=== PATIENT | female | born 1995 | race Caucasian/White ===

== ENCOUNTER → 2019-01-21 | Outpatient (CLI) | payer MEDICAID ==
--- NOTE | 2019-01-21 15:00 | RADIOLOGY REPORT (SQ) ---
EXAM DESCRIPTION: U/S OB 14+ TRNABD 1GES W/O DOP COMPLETED DATE/TIME: 01/21/2019 2:44 pm REASON FOR STUDY: Z34.02 ENCNTR FOR SUPRVSN OF NORMAL FIRST PREG, SECOND TRIMESTER Z34.02 ENCNTR FO R SUPRVSN OF NORMAL FIRST PREG, SECOND TRIME COMPARISON: None. TECHNIQUE: Static and Dynamic grayscale imaging performed of gravid uterus using transabdominal appr oach. Additional selected color Doppler and spectral images recorded. All stored on PACS. LIMITATIONS: None. FINDINGS: FETUSES SEEN:1 EGA: 18 weeks 0 days Calculated using BPD,FL,HC,AC documented on images. No discrepancy with clinica l dates. KENNA: 06/24/2019 EFW: 221 grams PERCENTILE: 24th LV P: 3.2 cm. PLACENTA: Posterior grade 1 PRESENTATION: Variable ANATOMY: HEART RATE: 168 beats per minute. FOUR CHAMBER HEART: Visualized. THREE VESSEL CORD: Yes. CORD INSERTION: Visualized. KIDNEYS AND BLADDER: Visualized. Appear normal. STOMACH: Visualized. Appears normal. SPINE: Normal as visualized. BRAIN AND LATERAL VENTRICLES: Visualized. Appear normal. OTHER: No other significant finding. MATERNAL ADNEXA: Maternal ovaries not visualized. CERVICAL LENGTH: 5.4 cm. Closed. OTHER: No other significant finding. IMPRESSION: LIVING INTRAUTERINE . ESTIMATED GESTATIONAL AGE 18 weeks 0 days. NO VISUALIZED ANOMALIES. Trimester of : Second trimester - 13 weeks 1 day to 27 weeks 6 days. TECHNICAL DOCUMENTATION: JOB ID: [id number] [employer]- All Rights Reserved Reading location - IP/workstation name: [email or web address]
== END ==
LOC: RAD 13:37
PROVIDERS: ATTEND Midwife
DX: Z34.02 Encounter for supervision of normal first pregnancy, second trimester (principal)
CPT/HCPCS: 76805

== ENCOUNTER 2019-02-11 15:49 | Emergency (ER) | payer MEDICAID ==
--- NOTE | 2019-02-11 16:10 | ER Document Report ---
ED Medical Screen (RME) - General Time Seen by Provider: 02/11/19 15:55 Primary Care Provider: DESHAUN ALEJANDRO CNM [Primary Care Provider] - Follow up as needed Notes: 23-year-old G1, P0 21-week female with history of Dennis sarcoma and intermittent hypertension presents the emergency department with left-sided chest pain and abdominal pain. Patient states that the chest pain is dull and constant but worse when she takes a deep breath. No positive family history. Does not radiate. No associated nausea, vomiting, diaphoresis, dyspnea on exertion. Patient's chief concern is the abdominal pain that is in the left upper quadrant and in the right lower quadrant. She states that it is constant and unlike any obvious cramping or normal aches and pains of . Call was placed upstairs to OB and they requested that we clear her chest pain prior to them assessing her for abdominal pain. Exam: Well-appearing in no acute distress, lungs are clear to auscultation all gómez, regular cardiac rate and rhythm with no murmurs, unable to reproduce theresa st pain with anterior palpation but patient can reproduce it when taking a deep breath, abdominal exam deferred I have greeted and performed a rapid initial assessment of this patient. A comprehensive ED assessment and evaluation of the patient, analysis of test results and completion of medical decision making process will be conducted by an additional ED providers. TRAVEL OUTSIDE OF THE [place] IN LAST 30 DAYS: No Physical Exam - Vital signs Vitals: Temp Pulse Resp BP Pulse Ox 98.2 F 88 16 111/71 99 02/11/19 15:55 02/11/19 15:55 02/11/19 15:55 02/11/19 15:55 02/11/19 15:55 Course - Vital Signs Vital signs: Temp Pulse Resp BP Pulse Ox 98.2 F 88 16 111/71 99 02/11/19 15:55 02/11/19 15:55 02/11/19 15:55 02/11/19 15:55 02/11/19 15:55 Doctor's Discharge - Discharge Referrals: DESHAUN ALEJANDRO CNM [Primary Care Provider] - Follow up as needed
[2019-02-11 17:16] LABS: ABSOLUTE BASOPHILS # (AUTO) 0.1 10^3/uL (0.0-0.2); ABSOLUTE EOSINOPHILS # (AUTO) 0.1 10^3/uL (0.0-0.6); ABSOLUTE LYMPHOCYTES (AUTO) 2.2 10^3/uL (0.5-4.7); ABSOLUTE MONOCYTES (AUTO) 0.9 10^3/uL (0.1-1.4); BASOPHILS % (AUTO) 0.5 % (0-2); EOSINOPHILS % (AUTO) 1.1 % (0-6); HEMATOCRIT 41.9 % (36.0-47.0); HEMOGLOBIN 14.1 g/dL (12.0-15.5); LYMPHOCYTES % (AUTO) 18.1 % (13-45); MEAN CORPUSCULAR HEMOGLOBIN 31.1 pg (27.0-33.4); MEAN CORPUSCULAR HGB CONC 33.7 g/dL (32.0-36.0); MEAN CORPUSCULAR VOLUME 93 fl (80-97); MONOCYTES % (AUTO) 6.9 % (3-13); PLATELET COUNT 277 10^3/uL (150-450); RED BLOOD COUNT 4.53 10^6/uL (3.72-5.28); RED CELL DISTRIBUTION WIDTH 15.2 % (11.5-14.0); SEGMENTED NEUTROPHILS % (AUTO) 73.4 % (42-78); TOTAL CELLS COUNTED % (AUTO) 100 %; WHITE BLOOD COUNT 12.3 10^3/uL (4.0-10.5)
[2019-02-11 17:18] LABS: APPEARANCE,URINE SLIGHTLY-CLOUDY; BILIRUBIN,URINE NEGATIVE (NEGATIVE); COLOR,URINE YELLOW; GLUCOSE, URINE 50 mg/dL (NEGATIVE); KETONES,URINE NEGATIVE (NEGATIVE); LEUKOCYTE ESTERASE,URINE SMALL (NEGATIVE); NITRITE,URINE NEGATIVE (NEGATIVE); PROTEIN,URINE NEGATIVE (NEGATIVE); URINE SPECIFIC GRAVITY 1.014; UROBILINOGEN,URINE NEGATIVE mg/dL (<2.0)
[2019-02-11 17:34] LABS: ALBUMIN 3.4 g/dL (3.5-5.0); ALKALINE PHOSPHATASE 72 U/L (38-126); ANION GAP 9 (5-19); ASPARTATE AMINO TRANSFERASE 19 U/L (14-36); BILIRUBIN,DIRECT 0.1 mg/dL (0.0-0.4); BILIRUBIN,TOTAL 0.3 mg/dL (0.2-1.3); BLOOD UREA NITROGEN 7 mg/dL (7-20); CALCIUM 9.3 mg/dL (8.4-10.2); CARBON DIOXIDE 24 mmol/L (22-30); CHLORIDE 106 mmol/L (98-107); GLUCOSE 90 mg/dL (75-110); POTASSIUM 3.4 mmol/L (3.6-5.0); TOTAL PROTEIN 6.2 g/dL (6.3-8.2)
--- NOTE | 2019-02-11 18:32 | RADIOLOGY REPORT (SQ) ---
EXAM DESCRIPTION: U/S OB LIMITED COMPLETED DATE/TIME: 02/11/2019 6:15 pm REASON FOR STUDY: pIN PREG COMPARISON: 01/21/2019 TECHNIQUE: Limited transabdominal grayscale ultrasound for evaluation of specific requested obstetri gage parameters. LIMITATIONS: None. FINDINGS: CERVICAL LENGTH: 3.3 cm. Closed. LV P: 2.8 cm. FHR: 147 beats per minute. PRESENTATION: Cephalic. PLACENTA: Posterior grade 1. ANATOMY: Not assessed OTHER: Gestation of 21 weeks 5 days. Estimated body weight 450 +/- 67 g. IMPRESSION: LIMITED OBSTETRICAL ULTRASOUND WITH MEASURED PARAMETERS DELINEATED ABOVE. Trimester of : Second trimester - 13 weeks 1 day to 27 weeks 6 days. TECHNICAL DOCUMENTATION: JOB ID: [id number] [employer]- All Rights Reserved Reading location - IP/workstation name: [email or web address]
--- NOTE | 2019-02-11 19:06 | EKG REPORT ---
SEVERITY:- NORMAL ECG - SINUS RHYTHM : Confirmed by: Zuleika Tang MD 11-Feb-2019 19:06:01
--- NOTE | 2019-02-11 20:36 | RADIOLOGY REPORT (SQ) ---
EXAM DESCRIPTION: RadLex: CT CHEST ANGIOGRAPHY WITHOUT THEN WITH IV CONTRAST CLINICAL HISTORY: 23 years Female; PE- elevated DIMER. PT TO BE CONSENTED. PREG.; TECHNIQUE: CT angiogram of the chest using intravenous contrast.. MIP reconstructions were performed. All CT scans at this facility use dose modulation, iterative reconstruction, and/or weight based dosing when appropriate to reduce radiation dose to as low as reasonably achievable. COMPARISON: None. FINDINGS: Chest: No filling defects in the central pulmonary arteries. No acute infiltrate, effusion, or pneumothorax. Mediastinum is normal, with no adenopathy or mass. No aortic aneurysm or dissection. Gallbladder is surgically absent Bony structures are unremarkable. IMPRESSION: 1. No CT evidence for pulmonary embolism. 2. No acute pulmonary findings. 3. Previous cholecystectomy
--- NOTE | 2019-02-11 21:22 | ER Document Report ---
ED General - General Chief Complaint: Chest Pain Time Seen by Provider: 02/11/19 15:55 Primary Care Provider: [facility] [Provider Group] - Follow up as needed DESHAUN ALEJANDRO CNM [NO LOCAL MD] - Follow up as needed Notes: Patient presents with 2 issues. Left-sided chest pain on positional, pleuritic, left parasternal radiating to left rib cage. Positive shortness of breath but no cough. 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 21 weeks . Also complains of lower abdominal pain worse with moving around without bleeding cramping back pain or urinary symptoms for the pain is been going on for a few days. [place] does not have care scheduled. TRAVEL OUTSIDE OF THE [place] IN LAST 30 DAYS: No Past Medical History - General Information source: Patient - Social History Smoking Status: Never Smoker Chew tobacco use (# tins/day): No Frequency of alcohol use: None Drug Abuse: None Family History: None Patient has suicidal ideation: No Patient has homicidal ideation: No Past Surgical History: Reports: Hx Cholecystectomy Review of Systems - Review of Systems Notes: REVIEW OF SYSTEMS GEN: Denies fever, chills, weight loss ENT: Denies sore throat, nasal discharge, ear pain EYES: Denies blurry vision, eye pain, discharge CV: Denies chest pain, palpitations, edema RESP: As per HPI GI: As per HPI MSK: Denies joint pain/swelling, edema, SKIN: Denies rash, skin lesions LYMPH: Denies swollen glands/lymph nodes NEURO: Denies headache, focal weakness or numbness, dizziness PSYCH: Denies depression, suicidal or homicidal ideation PHYSICAL EXAMINATION General: No acute distress, well-nourished Head: Atraumatic, normocephalic ENT: Mouth normal, oropharynx moist, no exudates or tonsillar enlargement Eyes: Conjunctiva normal, pupils equal, lids normal Neck: No JVD, supple, no guarding CVS: Normal rate, regular rhythm, no murmurs Resp: No resp distress, equal and normal breath sounds bilaterally GI: Nondistended, soft, no tenderness to palpation, no rebound or guarding Ext: No deformities, no edema, normal range of motion in upper and lower ext Back: No CVA or midline TTP Skin: No rash, warm Lymphatic: No lymphadeopathy noted Neuro: Awake, alert. Face symmetric. GCS 15. Physical Exam - Vital signs Vitals: Temp Pulse Resp BP Pulse Ox 98.2 F 88 16 111/71 99 02/11/19 15:55 02/11/19 15:55 02/11/19 15:55 02/11/19 15:55 02/11/19 15:55 Course - Re-evaluation Re-evalutation: 02/11/19 23:00 Young female with distant cancer history currently presents with lower abdominal pain and chest. Concerned that chest pain chest wall pain could be a possibility but more worried about her right embolus. She has no leg swelling. Apply the years criteria, and since PE is a #1 diagnosis sent d- dimer. Elevated above 500. Counseled regarding risks, discussed with [facility] G[facility] ordered CTPA. Negative. Labs negative. Troponin negative. Does have nonspecific EKG changes. Doubt ACS. Transabdominal pain she is nontender her ultrasound is reassuring, does not appear to be in early labor, and can follow-up as an outpatientpossible round ligament pain. No evidence of urinary source. Patient felt well in the ED was reassured and discharged her attempt to call OB to get her direct follow-up but they did not call back. [facility] I have discussed with the patient there likely diagnosis, aftercare plan, follow-up plans and my usual and customary return precautions. They verbalized understanding of this. - Vital Signs Vital signs: Temp Pulse Resp BP Pulse Ox 99.0 F 88 18 114/70 100 02/11/19 21:54 02/11/19 15:55 02/11/19 21:53 02/11/19 21:54 02/11/19 21:54 - Laboratory Result Diagrams: 02/11/19 17:03 02/11/19 17:03 Laboratory results interpreted by me: 02/11/19 02/11/19 02/11/19 17:03 17:03 17:03 WBC 12.3 H RDW 15.2 H Absolute Neuts (auto) 9.0 H D-Dimer Potassium 3.4 L Total Protein 6.2 L Albumin 3.4 L Urine Glucose (UA) 50 H Ur Leukocyte Esterase SMALL H Urine Ascorbic Acid 20 H 02/11/19 17:54 WBC RDW Absolute Neuts (auto) D-Dimer 0.64 H Potassium Total Protein Albumin Urine Glucose (UA) Ur Leukocyte Esterase Urine Ascorbic Acid - Diagnostic Test Radiology reviewed: Image reviewed - EKG Interpretation by Me EKG shows normal: Sinus rhythm Rate: Normal Rhythm: NSR - Nonspecific T wave changes inferiorlyno old for comparison When compared to previous EKG there are: Previous EKG unavailable Discharge - Discharge Clinical Impression: Chest pain at rest Condition: Good Disposition: HOME, SELF-CARE Instructions: Chest Wall Pain ([facility]) Additional Instructions: Testing for heart attack and blood clots in the lungs all of which was normal. appeared normal as well. I am referring her to [facility]. Although your blood pressure was fine, he did have some nonspecific abnormal EKG changes which may require following up with impregnating tank operator. Referrals: DESHAUN ALEJANDRO CNM [NO LOCAL MD] - Follow up as needed [facility] [Provider Group] - Follow up as needed
[2019-02-11 22:01] VITALS: BP 114/70
--- NOTE | 2019-02-12 12:58 | EKG REPORT ---
SEVERITY:- BORDERLINE ECG - SINUS RHYTHM BORDERLINE T ABNORMALITIES, ANTERIOR LEADS : Confirmed by: Zuleika Tang MD 12-Feb-2019 12:58:14
--- NOTE | 2019-02-12 13:00 | EKG REPORT ---
SEVERITY:- BORDERLINE ECG - ECTOPIC ATRIAL RHYTHM BORDERLINE T ABNORMALITIES, ANTERIOR LEADS : Confirmed by: Zuleika Tang MD 12-Feb-2019 12:59:20
--- NOTE | 2019-02-12 13:07 | EKG REPORT ---
SEVERITY:- BORDERLINE ECG - SINUS RHYTHM BORDERLINE T ABNORMALITIES, ANTERIOR LEADS : Confirmed by: Zuleika Tang MD 12-Feb-2019 13:06:30
== END 2019-02-11 22:01 | disposition home or self-care (01) ==
LOC: EDSTATUS 15:49 → ER 15:49
DX: O26.892 Other specified pregnancy related conditions, second trimester (principal); R07.81 Pleurodynia; R06.02 Shortness of breath; R10.30 Lower abdominal pain, unspecified; R79.89 Other specified abnormal findings of blood chemistry; Z3A.21 21 weeks gestation of pregnancy; Z90.49 Acquired absence of other specified parts of digestive tract
CPT/HCPCS: 36415; 71275; 76815; 80053; 81001; 84484; 85025; 85379; 93005; 93010; 99285

== ENCOUNTER 2019-05-04 09:16 | Outpatient (CLI) | payer MEDICAID ==
[2019-05-04] MEDS ORDERED: MAG HYDROX/AL HYDROX/SIMETH SUSP 30 ML UDCUP PO ONE (10:04)
[2019-05-04] MEDS ORDERED: BUTALB/ACETAMINOPHEN/CAFFEINE 1 TAB EACH PO ONE (10:04)
[2019-05-04] MEDS ORDERED: RINGERS SOLUTION,LACTATED 1,000 ML IV PRN (10:09)
[2019-05-04] MEDS ORDERED: BUTALB/ACETAMINOPHEN/CAFFEINE 1 TAB EACH ONE (10:13)
[2019-05-04] MEDS ORDERED: MAG HYDROX/AL HYDROX/SIMETH SUSP 30 ML UDCUP ONE (10:14)
[2019-05-04 10:16] LABS: APPEARANCE,URINE SLIGHTLY-CLOUDY; BILIRUBIN,URINE NEGATIVE (NEGATIVE); COLOR,URINE YELLOW; GLUCOSE, URINE 50 mg/dL (NEGATIVE); KETONES,URINE TRACE mg/dL (NEGATIVE); LEUKOCYTE ESTERASE,URINE MODERATE (NEGATIVE); NITRITE,URINE NEGATIVE (NEGATIVE); PROTEIN,URINE 100 mg/dL (NEGATIVE); URINE SPECIFIC GRAVITY 1.018; UROBILINOGEN,URINE NEGATIVE mg/dL (<2.0)
[2019-05-04 10:35] LABS: URINE AMPHETAMINES SCREEN NEGATIVE; URINE BARBITURATES SCREEN NEGATIVE; URINE BENZODIAZEPINES SCREEN NEGATIVE; URINE COCAINE SCREEN NEGATIVE; URINE MARIJUANA (THC) SCREEN NEGATIVE; URINE METHADONE SCREEN NEGATIVE; URINE PHENCYCLIDINE SCREEN NEGATIVE
--- NOTE | 2019-05-04 16:17 | Non Stress Test Report ---
Non Stress Test Datetime Report Generated by CPN: 05/04/2019 16:17 DEMOGRAPHIC EGA NST: 33.1 INDICATION Indication for Study (NST) Other: LC VITAL SIGNS Temperature - NST: 98.2 Pulse - NST: 81 RESP - NST: 16 NBPSYS NST: 114 NBPDIA NST: 57 MONITORING Monitor Explained: Monitor Explained; Test Explained; Patient Verbalized Understanding Time on Monitor: 05/04/2019 09:50 Time off Monitor: 05/04/2019 12:30 NST Duration: 160 NST INTERVENTIONS NST Interventions: PO Hydration; IV Fluids; Reposition Patient Physician Notified NST: C kevin CNm BABY A: [id number] BABY A Movement : Present Contraction Frequency : irregular FHR Baseline : 140 Accelerations : 15X15 Decelerations : None Variability : Moderate 6-25bpm NST Review: Meets Criteria for Reactive NST NST Review and Verified By : C Deschutes RN NST Results: Reactive NST COMMENTS NST Comments: providers on unit reviewing FHT NST REPORT Report Trigger: Send Report
== END 2019-05-04 12:45 | disposition home or self-care (01) ==
LOC: LC 09:16
PROVIDERS: ATTEND Student in an Organized Health Care Education/Training Program
PROC: 4A1HXCZ Monitoring of Products of Conception, Cardiac Rate, External Approach (ICD-10-PCS; principal; 2019-05-04)
DX: O26.893 Other specified pregnancy related conditions, third trimester (principal); E86.0 Dehydration; Z3A.33 33 weeks gestation of pregnancy
CPT/HCPCS: 59025; 81001; 80307; J3490 ×2

== ENCOUNTER 2019-05-10 12:36 | Outpatient (CLI) | payer MEDICAID ==
[2019-05-10 13:11] LABS: APPEARANCE,URINE CLEAR; BILIRUBIN,URINE NEGATIVE (NEGATIVE); COLOR,URINE YELLOW; GLUCOSE, URINE 50 mg/dL (NEGATIVE); KETONES,URINE NEGATIVE (NEGATIVE); LEUKOCYTE ESTERASE,URINE MODERATE (NEGATIVE); NITRITE,URINE NEGATIVE (NEGATIVE); PROTEIN,URINE 30 mg/dL (NEGATIVE); URINE SPECIFIC GRAVITY 1.009; UROBILINOGEN,URINE NEGATIVE mg/dL (<2.0)
[2019-05-10 13:54] LABS: URINE AMPHETAMINES SCREEN NEGATIVE; URINE BENZODIAZEPINES SCREEN NEGATIVE; URINE COCAINE SCREEN NEGATIVE; URINE MARIJUANA (THC) SCREEN NEGATIVE; URINE METHADONE SCREEN NEGATIVE; URINE PHENCYCLIDINE SCREEN NEGATIVE
[2019-05-10 13:55] LABS: ABSOLUTE EOSINOPHILS # (AUTO) 0.1 10^3/uL (0.0-0.6); ABSOLUTE LYMPHOCYTES (AUTO) 1.7 10^3/uL (0.5-4.7); BASOPHILS % (AUTO) 0.4 % (0-2); EOSINOPHILS % (AUTO) 0.9 % (0-6); HEMATOCRIT 42.5 % (36.0-47.0); HEMOGLOBIN 14.5 g/dL (12.0-15.5); LYMPHOCYTES % (AUTO) 13.5 % (13-45); MEAN CORPUSCULAR HEMOGLOBIN 31.4 pg (27.0-33.4); MEAN CORPUSCULAR HGB CONC 34.2 g/dL (32.0-36.0); MEAN CORPUSCULAR VOLUME 92 fl (80-97); MONOCYTES % (AUTO) 7.8 % (3-13); PLATELET COUNT 214 10^3/uL (150-450); RED BLOOD COUNT 4.63 10^6/uL (3.72-5.28); RED CELL DISTRIBUTION WIDTH 14.5 % (11.5-14.0); SEGMENTED NEUTROPHILS % (AUTO) 77.4 % (42-78); TOTAL CELLS COUNTED % (AUTO) 100 %; WHITE BLOOD COUNT 12.9 10^3/uL (4.0-10.5)
[2019-05-10 13:58] LABS: UR PRO/CREAT RATIO RESULT 0.7 mg/mg (0.0-0.2); URINE CREATININE 53.5 mg/dL (16-327); URINE PROTEIN 38.7 mg/dL (<12)
[2019-05-10 14:18] LABS: URINE BARBITURATES SCREEN UNCONFIRMED POSITIVE
[2019-05-10 14:24] LABS: ALBUMIN 3.3 g/dL (3.5-5.0); ALKALINE PHOSPHATASE 108 U/L (38-126); ANION GAP 10 (5-19); ASPARTATE AMINO TRANSFERASE 20 U/L (14-36); BILIRUBIN,DIRECT 0.3 mg/dL (0.0-0.4); BILIRUBIN,TOTAL 0.3 mg/dL (0.2-1.3); BLOOD UREA NITROGEN 6 mg/dL (7-20); CALCIUM 9.2 mg/dL (8.4-10.2); CARBON DIOXIDE 19 mmol/L (22-30); CHLORIDE 107 mmol/L (98-107); GLUCOSE 71 mg/dL (75-110); POTASSIUM 3.8 mmol/L (3.6-5.0); TOTAL PROTEIN 6.3 g/dL (6.3-8.2); URIC ACID 3.2 mg/dL (2.5-6.2)
--- NOTE | 2019-05-10 15:02 | Non Stress Test Report ---
Non Stress Test Datetime Report Generated by CPN: 05/10/2019 15:01 DEMOGRAPHIC Test Number: 2 EGA NST: 34.0 INDICATION Indication for Study (NST) Other: Labor check ordered by provider VITAL SIGNS Temperature - NST: 98.1 Pulse - NST: 86 RESP - NST: 18 NBPSYS NST: 107 NBPDIA NST: 58 MONITORING Monitor Explained: Monitor Explained; Test Explained; Patient Verbalized Understanding Time on Monitor: 05/10/2019 13:00 Time off Monitor: 05/10/2019 14:16 NST Duration: 76 NST INTERVENTIONS NST Interventions: PO Hydration Physician Notified NST: JCox,CNM BABY A: [id number] BABY A Movement : Present Contraction Frequency : 0 FHR Baseline : 125 Accelerations : 15X15 Decelerations : None Variability : Moderate 6-25bpm NST Review: Meets Criteria for Reactive NST NST Review and Verified By : OCTAVIA Obrien NST Results: Reactive NST REPORT Report Trigger: Send Report
[2019-05-11 15:50] LABS: URINE PROTEIN 32.3 mg/dL (<12)
[2019-05-11 15:51] LABS: 24 HOUR URINE PROTEIN RESULT 853 mg/day (42-225)
== END 2019-05-10 15:04 | disposition home or self-care (01) ==
LOC: LC 12:36
PROVIDERS: ATTEND Student in an Organized Health Care Education/Training Program
PROC: 4A1HXCZ Monitoring of Products of Conception, Cardiac Rate, External Approach (ICD-10-PCS; principal; 2019-05-10)
DX: O11.3 Pre-existing hypertension with pre-eclampsia, third trimester (principal); O10.913 Unspecified pre-existing hypertension complicating pregnancy, third trimester; O47.03 False labor before 37 completed weeks of gestation, third trimester; Z3A.34 34 weeks gestation of pregnancy
CPT/HCPCS: 59025; 36415; 83615; 84156; 84550; 82570; 85025; 80053; 81001; 80307; 80345; 84112; G0480

== ENCOUNTER 2019-05-19 14:32 | Outpatient (CLI) | payer MEDICAID ==
--- NOTE | 2019-05-19 15:22 | Non Stress Test Report ---
Non Stress Test Datetime Report Generated by CPN: 05/19/2019 15:22 DEMOGRAPHIC EGA NST: 35.2 INDICATION Indication for Study (NST) Other: Repeat NST VITAL SIGNS Temperature - NST: 98.1 Pulse - NST: 93 RESP - NST: 18 NBPSYS NST: 117 NBPDIA NST: 59 MONITORING Monitor Explained: Monitor Explained; Test Explained; Patient Verbalized Understanding Time on Monitor: 05/19/2019 14:47 Time off Monitor: 05/19/2019 15:10 NST Duration: 23 NST INTERVENTIONS NST Interventions: PO Hydration Physician Notified NST: K Rodriguez CNM BABY A: [id number] BABY A Movement : Present Contraction Frequency : 0 FHR Baseline : 135 Accelerations : 15X15 Variability : Moderate 6-25bpm NST Review: Meets Criteria for Reactive NST NST Review and Verified By : Missy Camp RNC NST Results: Reactive NST REPORT Report Trigger: Send Report
== END 2019-05-19 15:17 | disposition home or self-care (01) ==
LOC: LC 14:32
PROVIDERS: ATTEND Obstetrics & Gynecology Gynecology
PROC: 4A1HXCZ Monitoring of Products of Conception, Cardiac Rate, External Approach (ICD-10-PCS; principal; 2019-05-19)
DX: O12.13 Gestational proteinuria, third trimester (principal); Z3A.35 35 weeks gestation of pregnancy
CPT/HCPCS: 59025

== ENCOUNTER 2019-05-29 23:06 | Outpatient (CLI) | payer MEDICAID ==
[2019-05-29 23:33] LABS: APPEARANCE,URINE CLEAR; BILIRUBIN,URINE NEGATIVE (NEGATIVE); COLOR,URINE YELLOW; GLUCOSE, URINE 50 mg/dL (NEGATIVE); KETONES,URINE NEGATIVE (NEGATIVE); LEUKOCYTE ESTERASE,URINE TRACE (NEGATIVE); NITRITE,URINE NEGATIVE (NEGATIVE); PROTEIN,URINE NEGATIVE (NEGATIVE); URINE SPECIFIC GRAVITY 1.008; UROBILINOGEN,URINE NEGATIVE mg/dL (<2.0)
[2019-05-29 23:49] LABS: URINE AMPHETAMINES SCREEN NEGATIVE; URINE BARBITURATES SCREEN NEGATIVE; URINE BENZODIAZEPINES SCREEN NEGATIVE; URINE COCAINE SCREEN NEGATIVE; URINE MARIJUANA (THC) SCREEN NEGATIVE; URINE METHADONE SCREEN NEGATIVE; URINE PHENCYCLIDINE SCREEN NEGATIVE
== END 2019-05-30 00:57 | disposition home or self-care (01) ==
LOC: LC 23:06
PROVIDERS: ATTEND Obstetrics & Gynecology Gynecology
PROC: 4A1HXCZ Monitoring of Products of Conception, Cardiac Rate, External Approach (ICD-10-PCS; principal; 2019-05-29)
DX: Z34.93 Encounter for supervision of normal pregnancy, unspecified, third trimester (principal); Z3A.36 36 weeks gestation of pregnancy
CPT/HCPCS: 59025; 80307; 81001; 84112

== ENCOUNTER 2019-06-10 01:33 | Outpatient (CLI) | payer MEDICAID ==
[2019-06-10 02:00] LABS: APPEARANCE,URINE CLEAR; BILIRUBIN,URINE NEGATIVE (NEGATIVE); COLOR,URINE STRAW; GLUCOSE, URINE 50 mg/dL (NEGATIVE); KETONES,URINE NEGATIVE (NEGATIVE); LEUKOCYTE ESTERASE,URINE SMALL (NEGATIVE); NITRITE,URINE NEGATIVE (NEGATIVE); PROTEIN,URINE NEGATIVE (NEGATIVE); URINE SPECIFIC GRAVITY 1.003; UROBILINOGEN,URINE NEGATIVE mg/dL (<2.0)
[2019-06-10 02:45] LABS: URINE AMPHETAMINES SCREEN NEGATIVE; URINE BARBITURATES SCREEN NEGATIVE; URINE BENZODIAZEPINES SCREEN NEGATIVE; URINE COCAINE SCREEN NEGATIVE; URINE MARIJUANA (THC) SCREEN NEGATIVE; URINE METHADONE SCREEN NEGATIVE; URINE PHENCYCLIDINE SCREEN NEGATIVE
--- NOTE | 2019-06-13 21:59 | Non Stress Test Report ---
Non Stress Test Datetime Report Generated by CPN: 06/13/2019 21:59 DEMOGRAPHIC EGA NST: 38.3 INDICATION Indication for Study (NST) Other: IUP @ 38.3 with contractions MONITORING Monitor Explained: Monitor Explained; Test Explained; Patient Verbalized Understanding Time on Monitor: 06/10/2019 01:29 Time off Monitor: 06/10/2019 02:18 NST Duration: 49 NST INTERVENTIONS NST Interventions: PO Hydration Physician Notified NST: Dr. Multani BABY A: [id number] BABY A Movement : Present Contraction Frequency : None FHR Baseline : 125 Accelerations : 15X15 Decelerations : None Variability : Moderate 6-25bpm NST Review: Meets Criteria for Reactive NST NST Review and Verified By : OCTAVIA VARGAS Results: Reactive NST REPORT Report Trigger: Send Report
== END 2019-06-10 02:25 | disposition home or self-care (01) ==
LOC: LC 01:33
PROVIDERS: ATTEND Student in an Organized Health Care Education/Training Program
PROC: 4A1HXCZ Monitoring of Products of Conception, Cardiac Rate, External Approach (ICD-10-PCS; principal; 2019-06-10)
DX: O47.1 False labor at or after 37 completed weeks of gestation (principal); Z3A.38 38 weeks gestation of pregnancy
CPT/HCPCS: 59025; 80307; 81001

== ENCOUNTER 2019-06-13 22:24 | Inpatient (IN) | payer MEDICAID ==
[2019-06-13] MEDS ORDERED: MAG HYDROX/AL HYDROX/SIMETH SUSP 30 ML UDCUP PO PRN (22:54)
[2019-06-13] MEDS ORDERED: RINGERS SOLUTION,LACTATED 300 ML IV ONE (22:54)
[2019-06-13] MEDS ORDERED: RINGERS SOLUTION,LACTATED 1,000 ML IV PRN (22:54)
[2019-06-13] MEDS ORDERED: OXYTOCIN/NORMAL SALINE 20 UNIT/1,000 ML RTUINJ IV PRN (22:54)
[2019-06-13] MEDS ORDERED: ZOLPIDEM TARTRATE 5 MG TABLET PO PRN (22:54)
[2019-06-13] MEDS ORDERED: ACETAMINOPHEN 325 MG TABLET PO PRN (22:54)
[2019-06-13] MEDS ORDERED: DINOPROSTONE 10 MG VAGINAL INSERT.SR PV ONE (22:54)
[2019-06-13 23:20] LABS: ABSOLUTE BASOPHILS # (AUTO) 0.1 10^3/uL (0.0-0.2); ABSOLUTE EOSINOPHILS # (AUTO) 0.1 10^3/uL (0.0-0.6); ABSOLUTE LYMPHOCYTES (AUTO) 2.5 10^3/uL (0.5-4.7); ABSOLUTE MONOCYTES (AUTO) 1.3 10^3/uL (0.1-1.4); ABSOLUTE NEUT (AUTO) 11.5 10^3/uL (1.7-8.2); BASOPHILS % (AUTO) 0.4 % (0-2); EOSINOPHILS % (AUTO) 0.7 % (0-6); HEMATOCRIT 40.2 % (36.0-47.0); HEMOGLOBIN 13.7 g/dL (12.0-15.5); MEAN CORPUSCULAR HGB CONC 34.1 g/dL (32.0-36.0); MEAN CORPUSCULAR VOLUME 91 fl (80-97); MONOCYTES % (AUTO) 8.6 % (3-13); PLATELET COUNT 234 10^3/uL (150-450); RED BLOOD COUNT 4.43 10^6/uL (3.72-5.28); RED CELL DISTRIBUTION WIDTH 14.7 % (11.5-14.0); SEGMENTED NEUTROPHILS % (AUTO) 74.3 % (42-78); TOTAL CELLS COUNTED % (AUTO) 100 %; WHITE BLOOD COUNT 15.4 10^3/uL (4.0-10.5)
[2019-06-13] MEDS ORDERED: DINOPROSTONE 10 MG VAGINAL INSERT.SR ONE (23:26)
[2019-06-13] MEDS ORDERED: ZOLPIDEM TARTRATE 5 MG TABLET ONE (23:43)
[2019-06-13 23:55] LABS: APPEARANCE,URINE CLOUDY; BILIRUBIN,URINE NEGATIVE (NEGATIVE); COLOR,URINE YELLOW; GLUCOSE, URINE 50 mg/dL (NEGATIVE); KETONES,URINE NEGATIVE (NEGATIVE); LEUKOCYTE ESTERASE,URINE LARGE (NEGATIVE); NITRITE,URINE NEGATIVE (NEGATIVE); PROTEIN,URINE 30 mg/dL (NEGATIVE); URINE SPECIFIC GRAVITY 1.014; UROBILINOGEN,URINE NEGATIVE mg/dL (<2.0)
[2019-06-14 00:10] LABS: URINE AMPHETAMINES SCREEN NEGATIVE; URINE BARBITURATES SCREEN NEGATIVE; URINE BENZODIAZEPINES SCREEN NEGATIVE; URINE COCAINE SCREEN NEGATIVE; URINE MARIJUANA (THC) SCREEN NEGATIVE; URINE METHADONE SCREEN NEGATIVE; URINE PHENCYCLIDINE SCREEN NEGATIVE
[2019-06-14] MEDS ORDERED: MISOPROSTOL 0.2 MG TABLET ONE (07:33)
[2019-06-14] MEDS ORDERED: OXYTOCIN 10 UNIT/ML VIAL ONE (07:33)
[2019-06-14] MEDS ORDERED: LIDOCAINE 1% INJ-PF (10 MG/ML) 30 ML SDV ONE (07:33)
[2019-06-14] MEDS ORDERED: OXYTOCIN/NORMAL SALINE 20 UNIT/1,000 ML RTUINJ ONE (07:34)
--- NOTE | 2019-06-14 07:36 | Admission Physical ---
Datetime Report Generated by CPN: 06/14/2019 07:36 CURRENT ADMISSION Chief Complaint: Scheduled Induction of Labor Indication for Induction: IUGR Indication for Induction- Other: proteinuria Admit Impression : Term, Intrauterine ; Induction of Labor Admit Plan: Admit to Unit; Initiate Labor Induction Protocol ALLERGIES Medication Allergies: Yes Medication Allergies: ibuprofen (06/13/2019); sumatriptan (06/13/2019); tramadol (06/13/2019) Latex: No Latex Allergies OBSTETRICAL HISTORY EDC: 06/21/2019 00:00 : 1 Para: 0 Term: 0 : 0 SAB: 0 IAB: 0 Ectopic: 0 Livin Cesareans: 0 VBACs: 0 Multiple Births: 0 Gestational Diabetes: No Rh Sensitization: No Incompetent Cervix: No SHANIQUE: No Infertility: No ART Treatment: No Uterine Anomaly: No IUGR: No Hx Previous C/S: No Macrosomia: No Hx Loss/Stillborn: No PIH: No Hx : No Placenta Previa/Abruption: No Depression/PP Depression: No PTL/PROM: No Post Hemorrhage: No Current Procedures: Ultrasound Obstetrical History Comments: 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, blood transfusion, HTN - never medicated, anxiety/depression, 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, PTSD, 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 - normal ECHO INFECTIOUS HISTORY Gonorrhea: No Genital Herpes: Yes Chlamydia: No Tuberculosis: No Syphilis: No Hepatitis: No HIV/AIDS Exposure: No Rash or Viral Illness: No HPV: No Infectious History Comments: HSV PHYSICAL EXAM General: Normal HEENT: Normal Neurologic: Normal Thyroid: Normal Heart: Normal Lungs: Normal Breast: Normal Back: Normal Abdomen: Normal Genitourinary Exam: Normal Extremities: Normal DTRs: Normal Pelvic Type: Adequate Vital Signs: Reviewed; Within Normal Limits VAGINAL EXAM Dilatation: 1 Effacement: 50 Station: -3 MEMBRANES Pooling: Negative Membranes: Intact FETUS A EGA: 39.0 Monitoring: External US FHR- Baseline: 120 Variability: Moderate 6-25bpm Accelerations: 15X15 FHR Category: Category I Estimated Weight (gm): 3100 Presentation: Vertex PLANS FOR LABOR AND DELIVERY Labor and Delivery: None Pain Management: Epidural Feeding Preference: Breast Benefit of Breast Feed Discussed: Yes Circumcision: N/A INFORMED CONSENT Signature: with User ID: [email or web address]
[2019-06-14 08:23] LABS: ABSOLUTE EOSINOPHILS # (AUTO) 0.1 10^3/uL (0.0-0.6); ABSOLUTE MONOCYTES (AUTO) 1.2 10^3/uL (0.1-1.4); ABSOLUTE NEUT (AUTO) 11.5 10^3/uL (1.7-8.2); BASOPHILS % (AUTO) 0.3 % (0-2); EOSINOPHILS % (AUTO) 0.5 % (0-6); HEMOGLOBIN 14.3 g/dL (12.0-15.5); LYMPHOCYTES % (AUTO) 13.4 % (13-45); MEAN CORPUSCULAR HEMOGLOBIN 30.9 pg (27.0-33.4); MEAN CORPUSCULAR HGB CONC 34.1 g/dL (32.0-36.0); MEAN CORPUSCULAR VOLUME 91 fl (80-97); PLATELET COUNT 211 10^3/uL (150-450); RED BLOOD COUNT 4.65 10^6/uL (3.72-5.28); RED CELL DISTRIBUTION WIDTH 14.8 % (11.5-14.0); SEGMENTED NEUTROPHILS % (AUTO) 77.8 % (42-78); TOTAL CELLS COUNTED % (AUTO) 100 %; WHITE BLOOD COUNT 14.8 10^3/uL (4.0-10.5)
[2019-06-14 08:45] LABS: ALKALINE PHOSPHATASE 153 U/L (38-126); ANION GAP 8 (5-19); ASPARTATE AMINO TRANSFERASE 19 U/L (14-36); BILIRUBIN,TOTAL 0.5 mg/dL (0.2-1.3); BLOOD UREA NITROGEN 5 mg/dL (7-20); CALCIUM 8.9 mg/dL (8.4-10.2); CARBON DIOXIDE 18 mmol/L (22-30); CHLORIDE 109 mmol/L (98-107); GLUCOSE 84 mg/dL (75-110); POTASSIUM 3.7 mmol/L (3.6-5.0); TOTAL PROTEIN 5.5 g/dL (6.3-8.2); URIC ACID 3.7 mg/dL (2.5-6.2)
[2019-06-14] MEDS ORDERED: ONDANSETRON HCL INJ/PF 4 MG/2 ML SDV ONE ×2 (10:00→16:22)
[2019-06-14] MEDS: ONDANSETRON HCL INJ/PF 4 MG/2 ML SDV IV PRN ×2 (10:05→16:24)
[2019-06-14] MEDS ORDERED: PENICILLIN G POTASSIUM 5,000,000 UNIT in DEXTROSE 5%-WATER 100 ML IV ONE (13:00)
[2019-06-14] MEDS ORDERED: PENICILLIN G-K 5 MILLION UNIT VIAL ONE ×2 (13:17→17:10)
[2019-06-14] MEDS ORDERED: FENTANYL/BUPIVACAINE/NS/PF 300 MCG/150 ML RTUINJ EPI ONE (13:28)
[2019-06-14] MEDS ORDERED: EPHEDRINE SULFATE INJ 50 MG/1 ML AMPULE ONE (13:28)
[2019-06-14] MEDS ORDERED: BUPIVACAINE HCL 0.25 % INJ/PF (2.5 MG/1 ML) 30 ML VIAL ONE (13:28)
[2019-06-14] MEDS: PENICILLIN G POTASSIUM 2,500,000 UNIT in DEXTROSE 5%-WATER 50 ML IV SCH (17:16)
[2019-06-14] MEDS ORDERED: BENZOCAINE/MENTHOL AEROSOL SPRAY 56 ML TOP PRN (19:01)
[2019-06-14] MEDS ORDERED: ACETAMINOPHEN WITH CODEINE #3 TABLET PO PRN (19:01)
[2019-06-14] MEDS ORDERED: MAGNESIUM HYDROXIDE SUSP 30 ML UDCUP PO PRN (19:01)
[2019-06-14] MEDS ORDERED: MISOPROSTOL 0.2 MG TABLET PR PRN (19:01)
[2019-06-14] MEDS ORDERED: ACETAMINOPHEN 650 MG SUPP.RECT PR PRN (19:01)
[2019-06-14] MEDS ORDERED: PSEUDOEPHEDRINE HCL 30 MG TABLET PO PRN (19:01)
[2019-06-14] MEDS ORDERED: GLYCERIN/WITCH HAZEL LEAF 1 EACH MED..WIPE TP PRN (19:01)
[2019-06-14] MEDS ORDERED: MEASLES,MUMPS&RUBELLA VACC/PF 0.5 ML VIAL SUBCUT PRN (19:01)
[2019-06-14] MEDS ORDERED: DIPH/PERTUSS(ACELL)/TETANUS VAC/PF 0.5 ML SYR (>=10YO) IM PRN (19:01)
[2019-06-14] MEDS ORDERED: PROMETHAZINE HCL 25 MG SUPP.RECT PR PRN (19:01)
[2019-06-14] MEDS ORDERED: DIPHENHYDRAMINE HCL 25 MG CAPSULE PO PRN (19:01)
[2019-06-14] MEDS ORDERED: PROMETHAZINE HCL 25 MG TABLET PO PRN (19:01)
[2019-06-14] MEDS ORDERED: OXYTOCIN/NORMAL SALINE 20 UNIT/1,000 ML RTUINJ IV PRN (19:01)
[2019-06-14] MEDS ORDERED: PROMETHAZINE HCL INJ 25 MG/1 ML VIAL IV PRN (19:01)
[2019-06-14] MEDS ORDERED: NA PHOS,M-B/NA PHOS,DI-BA (ADULT) 133 ML ENEMA PR PRN (19:01)
[2019-06-14] MEDS ORDERED: DIBUCAINE 1% OINTMENT 28 GM TP PRN (19:01)
[2019-06-14] MEDS ORDERED: ZOLPIDEM TARTRATE 5 MG TABLET PO PRN (19:01)
[2019-06-14] MEDS ORDERED: ACETAMINOPHEN WITH CODEINE #3 TABLET ONE (19:42)
[2019-06-14] MEDS: ACETAMINOPHEN WITH CODEINE #3 TABLET PO PRN ×2 (19:44→23:57)
--- NOTE | 2019-06-14 20:40 | Warning Signs in Babies ---
VOD Warning Signs Datetime Report Generated by [facility]: 06/14/2019 20:40 VOD#608 -Warning Signs in Babies: Viewed with Parent(s)/Family (04/05/2019 00:48:Robina Gmoes RN)
--- NOTE | 2019-06-14 20:49 | Delivery Summary ---
Del Sum A-C Datetime Report Generated by CPN: 06/14/2019 20:48 DELIVERY PERSONNEL DELIVERY PERSONNEL: [id number] Delivery Doctor:: Araceli Multani MD Labor and Delivery Nurse:: Chantelle Romero RNplate glass polisher Nurse:: MARINA Oh Brazer Assembler/HAND II THERMAL CUTTER: Margaret Iyer SOFTBALL UMPIRE Additional Personnel: : Kisha N MATERNAL INFORMATION Delivery Anesthesia: Epidural Medications After Delivery: Pitocin Bolus-Please Comment; Cytotec 1000mcg Per Rectum/Vagina Estimated Blood Loss (ml): 100 Delivery QBL: 100 Delivery QBL Comment: 100 Maternal Complications: Other Complication Details: protienuria, SGA Provider Comments: VFI delivered in SAM presentation. Loose nuchal cord delivered through. Shoulders and body delivered without difficulty. cord doubly clamped and cut and to maternal abdomen for NRP. pLacenta delivered intact spontaneously. FF at U after cytotec 1000mcg and Pitocin. No perineal lacerationas. Mother and baby stable upon provider leaving the room. LABOR SUMMARY EDC: 06/21/2019 00:00 No. Babies in Womb: 1 Attempted: No Labor Anesthesia: Epidural LABOR INFORMATION Reason for Induction: Intrauterine Growth Retardation Onset of Labor: 06/14/2019 13:02 Complete Dilatation: 06/14/2019 17:17 Cervical Ripening Agents: Cervidil Oxytocin: N/A Group B Beta Strep: positive Antibiotics # of Doses: 2 Antibiotics Time of Last Dose: 1756 Name of Antibiotic Given: penicillin Steroids Given: None Reason Steroids Not Administered: Not Applicable MEMBRANES Membranes Rupture Method: Spontaneous Rupture of Membranes: 06/14/2019 13:02 Length of Rupture (hr): 5.75 Amniotic Fluid Color: Clear Amniotic Fluid Amount: Scant Amniotic Fluid Odor: None STAGES OF LABOR Stage 1 hr: 4 Stage 1 min: 15 Stage 2 hr: 1 Stage 2 min: 30 Stage 3 hr: 2159 Stage 3 min: 4 Total Time in Labor hr: 2164 Total Time in Labor min: 49 VAGINAL DELIVERY Episiotomy: None Laceration #1: None Laceration Extension #1: N/A Laceration Repair: Not Applicable Sponge Count Correct: Yes Sharps Count Correct: Yes CSECTION DELIVERY Primary Indication: N/A Secondary Indication: N/A CSection Incidence: N/A Labor: N/A Elective: N/A CSection Incision: N/A BABY A INFORMATION Infant Delivery Date/Time: 06/14/2019 18:47 Method of Delivery: Vaginal Nurse Controlled Delivery: No Born in Route : No : N/A Forceps: N/A Vacuum Extraction: N/A Shoulder Dystocia : No PRESENTATION/POSITION BABY A Presentation: Cephalic Cephalic Presentation: Vertex Vertex Position: Right Occipital Anterior Breech Presentation: N/A PLACENTA INFORMATION BABY A Placenta Delivery Time : 09/12/2019 18:51 Placenta Method of Delivery: Spontaneous Placenta Status: Delivered SCORES BABY A Heart Rate 1 min: >100 bpm Resp Effort 1 min: Slow, Irregular Reflex Irritability 1 min: Cough or Sneeze or Pulls Away Muscle Tone 1 min: Some Flexion of Extremities Color 1 min: Body [place], Extremities Blue Resuscitation Effort 1 min: Tactile Stimulation SCORE 1 MIN: 7 Heart Rate 5 min: >100 bpm Resp Effort 5 min: Slow, Irregular Reflex Irritability 5 min: Cough or Sneeze or Pulls Away Muscle Tone 5 min: Active Motion Color 5 min: Body [place], Extremities Blue Resuscitation Effort 5 min: Tactile Stimulation SCORE 5 MIN: 8 Resuscitation Effort 10 min: N/A INFANT INFORMATION BABY A Gestational Age at Delivery: 39.0 Gestational Status: Full Term- 39- 40.6 Weeks Outcome : Liveborn Condition : Stable Infant Sex: Female IDENTIFICATION BABY A Verification Date/Time: 06/14/2019 19:02 ID Band Number: [id number] Mother's Name Verified: Yes Infant RN Verifying Infant: Paulo Romero RN Additional Verifying Personnel: [employer] UMPIRE WEIGHT/LENGTH BABY A Infant Birthweight (gm): 2641 Infant Weight (lb): 5 Weight (oz): 13 Length (in): 19.50 Length (cm): 49.53 CORD INFORMATION BABY A Nuchal Cord : Around Neck x1, Loose Cord Blood Taken: Yes-For Storage (Mom's Blood type +) Infant Suction: Mouth ASSESSMENT BABY A Skin to Skin: Yes BABY B INFORMATION : N/A SIGNATURES Signature: with User ID: [email or web address]
[2019-06-14] MEDS: FAMOTIDINE 20 MG TABLET PO SCH (22:59)
[2019-06-15] MEDS ORDERED: INFLUENZA QUAD (6MOS+) 2019-20 VAC 0.5 ML SYR IM ONE (00:51)
[2019-06-15] MEDS: ACETAMINOPHEN WITH CODEINE #3 TABLET PO PRN ×3 (05:20→19:49)
[2019-06-15 08:08] LABS: HEMATOCRIT 38.8 % (36.0-47.0); MEAN CORPUSCULAR HEMOGLOBIN 30.7 pg (27.0-33.4); MEAN CORPUSCULAR HGB CONC 33.5 g/dL (32.0-36.0); MEAN CORPUSCULAR VOLUME 92 fl (80-97); PLATELET COUNT 219 10^3/uL (150-450); RED BLOOD COUNT 4.23 10^6/uL (3.72-5.28); RED CELL DISTRIBUTION WIDTH 14.6 % (11.5-14.0); WHITE BLOOD COUNT 17.7 10^3/uL (4.0-10.5)
[2019-06-15] MEDS: FAMOTIDINE 20 MG TABLET PO SCH ×2 (10:58→22:49)
[2019-06-15] MEDS: PRENATAL VITAMIN W DHA CAPSULE PO SCH (10:58)
[2019-06-15] MEDS: DOCUSATE SODIUM 100 MG CAPSULE PO SCH ×2 (10:58→17:27)
[2019-06-15] MEDS: SENNOSIDES/DOCUSATE 8.6-50 MG 1 EACH TABLET PO SCH (10:58)
[2019-06-15] MEDS: FERROUS SULFATE 325 MG TABLET PO SCH ×2 (10:59→17:27)
[2019-06-15] MEDS: PENICILLIN G POTASSIUM 2,500,000 UNIT in DEXTROSE 5%-WATER 50 ML IV SCH (15:42)
--- NOTE | 2019-06-15 17:16 | PDOC PROGRESS REPORT ---
Subjective-OB Progress Note for:: 06/15/19 Subjective: 23yo G1 now P1 s/p ppd day 1. Pt ambulating and voiding without difficulty. Pain well controlled with medications. No concerns today Physical Exam (OB) Vital Signs: Temp Pulse Resp BP Pulse Ox 98.3 F 91 16 115/61 98 06/15/19 07:34 06/15/19 07:34 06/15/19 07:34 06/15/19 07:34 06/15/19 07:34 Intake & Output 06/14/19 06/15/19 06/16/19 06:59 06:59 06:59 Weight 92 kg - General General Appearance: Appears well In distress: None - PIH/Pre-Eclampsia Headache: Absent Epigastric Pain: No Visual Changes: No - Episiotomy/Laceration Site Condition: N/A - Lochia Lochia Amount: Small 10-25 ml Lochia Color: Rubra/Red - Abdomen Description: Soft Hernia Present: No Fundal Description: Firm, Midline Fundal Height: u/u - u/2 - Respiratory Respiratory Status: No respiratory distress - Extremities Upper extremity: Normal inspection Lower extremities: Normal inspection - Neurological Cognition: Normal Orientation: AAOx4 - Psychological Associated symptoms: Normal affect, Normal mood Objective-Diagnostic Laboratory: 06/15/19 07:32 06/14/19 08:03 06/15/19 07:32 WBC 17.7 H RBC 4.23 Hgb 13.0 Hct 38.8 MCV 92 MCH 30.7 MCHC 33.5 RDW 14.6 H Plt Count 219 Assessment and Plan(PN) - Assessment and Plan (1) Encounter for induction of labor Is this a current diagnosis for this admission?: Yes Plan: delivered (2) Vaginal delivery Is this a current diagnosis for this admission?: Yes Plan: routine pp care - Time Spent with Patient Time with patient: Less than 15 minutes Medications reviewed and adjusted accordingly: Yes - Disposition Anticipated Discharge: Home Within: within 24 hours
[2019-06-16] MEDS: ACETAMINOPHEN WITH CODEINE #3 TABLET PO PRN (02:09)
[2019-06-16 08:58] VITALS: BP 107/58
[2019-06-16] MEDS: FAMOTIDINE 20 MG TABLET PO SCH (09:25)
[2019-06-16] MEDS: FERROUS SULFATE 325 MG TABLET PO SCH (09:25)
[2019-06-16] MEDS: DOCUSATE SODIUM 100 MG CAPSULE PO SCH (09:25)
[2019-06-16] MEDS: SENNOSIDES/DOCUSATE 8.6-50 MG 1 EACH TABLET PO SCH (09:25)
[2019-06-16] MEDS: PRENATAL VITAMIN W DHA CAPSULE PO SCH (09:25)
--- NOTE | 2019-06-16 10:20 | PDOC DISCHARGE SUMMARY ---
Impression - Admit/DC Date/PCP Admission Date/Primary Care Provider: 06/13/19 22:24 MARIELOS ESCAMILLA MD Discharge Date: 06/16/19 - Discharge Diagnosis (1) Encounter for induction of labor Is this a current diagnosis for this admission?: Yes (2) Vaginal delivery Is this a current diagnosis for this admission?: Yes - Additional Information Resuscitation Status: Full Code Discharge Diet: Regular Discharge Activity: Balance Activity w/Rest, Pelvic Rest Referrals: MARIELOS ESCAMILLA MD [Primary Care Provider] - Home Medications: Prenat 115/Iron Fum/Folic/Dss [ 19 Tablet] 1 tab PO DAILY 04/05/19 Valacyclovir HCl [Valtrex 500 mg Tablet] 500 mg PO DAILY 05/29/19 Results Laboratory Results: WBC 17.7 10^3/uL (4.0-10.5) H 06/15/19 07:32 RBC 4.23 10^6/uL (3.72-5.28) 06/15/19 07:32 Hgb 13.0 g/dL (12.0-15.5) 06/15/19 07:32 Hct 38.8 % (36.0-47.0) 06/15/19 07:32 MCV 92 fl (80-97) 06/15/19 07:32 MCH 30.7 pg (27.0-33.4) 06/15/19 07:32 MCHC 33.5 g/dL (32.0-36.0) 06/15/19 07:32 RDW 14.6 % (11.5-14.0) H 06/15/19 07:32 Plt Count 219 10^3/uL (150-450) 06/15/19 07:32 Lymph % (Auto) 13.4 % (13-45) 06/14/19 08:03 Lucas % (Auto) 8.0 % (3-13) 06/14/19 08:03 Eos % (Auto) 0.5 % (0-6) 06/14/19 08:03 Baso % (Auto) 0.3 % (0-2) 06/14/19 08:03 Absolute Neuts (auto) 11.5 10^3/uL (1.7-8.2) H 06/14/19 08:03 Absolute Lymphs (auto) 2.0 10^3/uL (0.5-4.7) 06/14/19 08:03 Absolute Monos (auto) 1.2 10^3/uL (0.1-1.4) 06/14/19 08:03 Absolute Eos (auto) 0.1 10^3/uL (0.0-0.6) 06/14/19 08:03 Absolute Basos (auto) 0.0 10^3/uL (0.0-0.2) 06/14/19 08:03 Seg Neutrophils % 77.8 % (42-78) 06/14/19 08:03 Sodium 135.2 mmol/L (137-145) L 06/14/19 08:03 Potassium 3.7 mmol/L (3.6-5.0) 06/14/19 08:03 Chloride 109 mmol/L (98-107) H 06/14/19 08:03 Carbon Dioxide 18 mmol/L (22-30) L 06/14/19 08:03 Anion Gap 8 (5-19) 06/14/19 08:03 BUN 5 mg/dL (7-20) L 06/14/19 08:03 Creatinine 0.74 mg/dL (0.52-1.25) 06/14/19 08:03 Est GFR ( Amer) > 60 (>60) 06/14/19 08:03 Est GFR (MDRD) Non-Af > 60 (>60) 06/14/19 08:03 Glucose 84 mg/dL (75-110) 06/14/19 08:03 Uric Acid 3.7 mg/dL (2.5-6.2) 06/14/19 08:03 Calcium 8.9 mg/dL (8.4-10.2) 06/14/19 08:03 Total Bilirubin 0.5 mg/dL (0.2-1.3) 06/14/19 08:03 Direct Bilirubin 0.0 mg/dL (0.0-0.4) 06/14/19 08:03 Neonat Total Bilirubin Not Reportable 06/14/19 08:03 Neonat Direct Bilirubin Not Reportable 06/14/19 08:03 Neonat Indirect Bili Not Reportable 06/14/19 08:03 AST 19 U/L (14-36) 06/14/19 08:03 ALT 8 U/L (<35) 06/14/19 08:03 Alkaline Phosphatase 153 U/L (38-126) H 06/14/19 08:03 Lactate Dehydrogenase 161 U/L (120-246) 06/14/19 08:03 Total Protein 5.5 g/dL (6.3-8.2) L 06/14/19 08:03 Albumin 3.0 g/dL (3.5-5.0) L 06/14/19 08:03 Urine Color YELLOW 06/13/19 22:40 Urine Appearance CLOUDY 06/13/19 22:40 Urine pH 7.0 (5.0-9.0) 06/13/19 22:40 Ur Specific [place] 1.014 06/13/19 22:40 Urine Protein 30 mg/dL (NEGATIVE) H 06/13/19 22:40 Urine Glucose (UA) 50 mg/dL (NEGATIVE) H 06/13/19 22:40 Urine Ketones NEGATIVE mg/dL (NEGATIVE) 06/13/19 22:40 Urine Blood NEGATIVE (NEGATIVE) 06/13/19 22:40 Urine Nitrite NEGATIVE (NEGATIVE) 06/13/19 22:40 Urine Bilirubin NEGATIVE (NEGATIVE) 06/13/19 22:40 Urine Urobilinogen NEGATIVE mg/dL (<2.0) 06/13/19 22:40 Ur Leukocyte Esterase LARGE (NEGATIVE) H 06/13/19 22:40 Urine Ascorbic Acid NEGATIVE (NEGATIVE) 06/13/19 22:40 Urine Opiates Screen NEGATIVE 06/13/19 22:40 Urine Methadone Screen NEGATIVE 06/13/19 22:40 Ur Barbiturates Screen NEGATIVE 06/13/19 22:40 Ur Phencyclidine Scrn NEGATIVE 06/13/19 22:40 Ur Amphetamines Screen NEGATIVE 06/13/19 22:40 U Benzodiazepines Scrn NEGATIVE 06/13/19 22:40 Urine Cocaine Screen NEGATIVE 06/13/19 22:40 U Marijuana (THC) Screen NEGATIVE 06/13/19 22:40 RPR NONREACTIVE (NONREACTIVE) 06/13/19 23:05 Blood Type A POSITIVE 06/13/19 23:05 Antibody Screen NEGATIVE 06/13/19 23:05
== END 2019-06-16 12:10 | disposition home or self-care (01) | DRG 806 ==
LOC: LR 22:24 → 2S 06-14 20:59
PROVIDERS: ADMIT Student in an Organized Health Care Education/Training Program; ATTEND Student in an Organized Health Care Education/Training Program
PROC: 10E0XZZ Delivery of Products of Conception, External Approach (ICD-10-PCS; principal; 2019-06-14)
PROC: 3E0234Z Introduction of Serum, Toxoid and Vaccine into Muscle, Percutaneous Approach (ICD-10-PCS; 2019-06-16)
DX: O36.5930 Maternal care for other known or suspected poor fetal growth, third trimester, not applicable or unspecified (principal); O10.92 Unspecified pre-existing hypertension complicating childbirth; Z37.0 Single live birth; O98.32 Other infections with a predominantly sexual mode of transmission complicating childbirth; O69.81X0 Labor and delivery complicated by cord around neck, without compression, not applicable or unspecified; O99.824 Streptococcus B carrier state complicating childbirth; O99.344 Other mental disorders complicating childbirth; F41.8 Other specified anxiety disorders; A60.00 Herpesviral infection of urogenital system, unspecified; Z3A.39 39 weeks gestation of pregnancy; Z23 Encounter for immunization
CPT/HCPCS: 36415; 80053; 80307; 81005; 83615; 84550; 85025; 85027; 86592; 86850; 86900; 86901; 88307; 90686; 90715; J2405; J2540; J2590; J3010; J3490; J7060